=== PATIENT | female | born 1965 | race Caucasian/White ===

== ENCOUNTER → 2018-02-25 | Outpatient (CLI) | payer OTHER ==
[~2018-02-25] MED LIST: ARIP10 PO; ASCO500 PO; BIRTH CONTROL MED; CLON.1 PO; CLON.5; CLON.5 PO; CODACE30 PO; CODACE60 PO; CYCL10 PO; DIAZ5 PO; DICL75ER PO; ERGO50000 PO; ESTR2 PO; FERR325 PO; FLUO10 PO; FLUO20 PO; GABA100; GABA300 PO; HYDR1TAB94 PO; IBUHYD PO; IBUP800 PO; IMITREX PO; LEVOXYL PO; LEVSOD50 PO; LEVSOD75 PO; LIDO5TP TOP; MULVITMIND PO; Naprosyn500 MG PO; OXYB5; QUET100 PO; RISP1 PO; SERT100 PO; SIMV10; SUMA6I; TOPI50 PO; TRAZ50 PO; ZOLP10 PO
== END ==
LOC: LAB 16:45 → LAB SHORT 16:45
DX: N39.0 Urinary tract infection, site not specified (principal)
CPT/HCPCS: 87086

== ENCOUNTER 2020-07-15 06:24 | Day surgery (SDC) | payer OTHER ==
[~2020-07-15] VITALS: Ht 157.5 cm; Wt 86.3 kg
[~2020-07-15 06:24] MED LIST changes: +CLON2 PO; +CYCL10; +ESTRADIOL2 MG PO; +FERSU300 PO; +FIORINAL 50-321 EACH PO; +IBUP800; +LEVSOD150 PO; +METF500 PO; +OXYB5 PO; +SUMA25 PO; +ZOCOR20 MG PO
[2020-07-15] MEDS ORDERED: OMEP20ER PO (07:49)
== END 2020-07-15 10:15 | disposition home or self-care (01) ==
LOC: ORSCSDS 06:24
PROVIDERS: Podiatrist Foot & Ankle Surgery
PROC: 0SGG04Z Fusion of Left Ankle Joint with Internal Fixation Device, Open Approach (ICD-10-PCS; principal; 2020-07-15 08:15)
PROC: 0SBG4ZZ Excision of Left Ankle Joint, Percutaneous Endoscopic Approach (ICD-10-PCS; principal; 2020-07-15 08:15)
DX: M25.372 Other instability, left ankle (principal); I10 Essential (primary) hypertension; Z87.891 Personal history of nicotine dependence; E66.9 Obesity, unspecified; Z68.34 Body mass index [BMI] 34.0-34.9, adult; E78.5 Hyperlipidemia, unspecified; E03.9 Hypothyroidism, unspecified; Z79.899 Other long term (current) drug therapy
CPT/HCPCS: 82947; A9270; C1713; J0171; J0690; J1100; J1885; J2250; J2405; J2704; J3010; J7120

== ENCOUNTER 2021-04-11 09:33 | Day surgery (SDC) | payer OTHER ==
[~2021-04-11] VITALS: Ht 160 cm; Wt 86.4 kg
[~2021-04-11 09:33] MED LIST changes: +BUTALB-ACETAMI1 EAC6 PO; +CALCIUM CIT 311 EACH PO; +FERROUS SULFAT325 M3 PO; +FISH OIL 1,2001 EAC7 PO; +HAIR, SKIN AND1 EAC3 PO; +Hair, Skin & N1 EACH PO; +Imitrex100 MG PO; +LEVOTHYROXINE150 MC3 PO; +Norco 5-325 Ta1 EACH PO; +OMEP20ER PO; +VITAMIN D325 MC3
[2021-04-11] MEDS ORDERED: TRAZ150T57 PO (10:20)
[2021-04-11] MEDS ORDERED: Prozac40 MG PO (10:20)
--- NOTE | 2021-04-11 10:39 | NUR ---
04/11/21 [email or web address] [place] PROPOFOL ADMINISTERED BY [email or web address].
== END 2021-04-11 12:10 | disposition home or self-care (01) ==
LOC: ORSCSDS 09:33
PROVIDERS: Internal Medicine Gastroenterology
PROC: 0DBE8ZX Excision of Large Intestine, Via Natural or Artificial Opening Endoscopic, Diagnostic (ICD-10-PCS; principal; 2021-04-11 11:15)
DX: R19.4 Change in bowel habit (principal); K57.30 Diverticulosis of large intestine without perforation or abscess without bleeding; K64.8 Other hemorrhoids; Z86.010 Personal history of colon polyps; E78.5 Hyperlipidemia, unspecified; Z79.899 Other long term (current) drug therapy
CPT/HCPCS: 82947; 88305; J2704; J7120

== ENCOUNTER 2023-07-24 12:45 | Day surgery (SDC) | payer OTHER ==
[~2023-07-24] VITALS: Ht 160 cm; Wt 86.5 kg
[~2023-07-24 12:45] MED LIST changes: +Prozac40 MG PO; +TRAZ150T57 PO
[2023-07-24] MEDS ORDERED: BENTYL10 MG/1 ML (13:26)
[2023-07-24 14:51] VITALS: BP 111/73
== END 2023-07-24 14:54 | disposition home or self-care (01) ==
LOC: ORSCSDS 12:45
PROVIDERS: Internal Medicine Gastroenterology
PROC: 0DB98ZX Excision of Duodenum, Via Natural or Artificial Opening Endoscopic, Diagnostic (ICD-10-PCS; principal; 2023-07-24 14:15)
PROC: 0DB68ZX Excision of Stomach, Via Natural or Artificial Opening Endoscopic, Diagnostic (ICD-10-PCS; principal; 2023-07-24 14:15)
DX: R19.7 Diarrhea, unspecified (principal); K29.70 Gastritis, unspecified, without bleeding; R10.9 Unspecified abdominal pain; I10 Essential (primary) hypertension; E11.9 Type 2 diabetes mellitus without complications; E78.5 Hyperlipidemia, unspecified; E03.9 Hypothyroidism, unspecified; M79.7 Fibromyalgia; F31.89 Other bipolar disorder; F43.10 Post-traumatic stress disorder, unspecified; Z79.84 Long term (current) use of oral hypoglycemic drugs; Z79.899 Other long term (current) drug therapy
CPT/HCPCS: 82947; 88305; 88342; J2704; J7120